=== PATIENT | female | born 1930 | race Caucasian/White ===

== ENCOUNTER → 2017-11-19 | Day surgery (SDC) | payer MEDICARE, BC ==
[~2017-11-19] MED LIST: Lactated Ringers 1,000 ML IV SCH; Propofol 200 MG/20 ML SDV IV ONE
[2017-11-19 10:25] VITALS: BP 183/63
--- NOTE | 2017-11-19 13:03 | OR ---
DATE OF OPERATION: 11/19/2017 PREOPERATIVE DIAGNOSIS: HEME-POSITIVE STOOL. POSTOPERATIVE DIAGNOSIS: HEME-POSITIVE STOOL. SURGEON: Walter Vincent MD PROCEDURE: FULL-LENGTH COLONOSCOPY. ANESTHESIA: RAISIN WASHER due to advanced age. COMPLICATIONS: None. SPECIMEN: None. FINDINGS: 1. Essentially normal full-length colonoscopy. 2. Extremely poor bowel prep. 3. Internal hemorrhoids. RECOMMENDATIONS: Medical followup with Sofi Shoemaker. INDICATIONS: The patient was in for a routine physical. She apparently had of a positive Hemoccult on her exam and was sent for colonoscopy as the patient has a history of polyps apparently in the past and it had been many years since her last colonoscopy. DESCRIPTION OF PROCEDURE: The patient was prepped and draped, placed in the left lateral decubitus position. A lubricated Olympus colonoscope was inserted and unfortunately, the patient had a very poor prep. She had a lot of liquid stool, unfortunately a lot of particulate matter throughout. We were able to usually maneuver around these areas and ultimately we advanced to the deep right colon. The patient had a significant amount of stool in the right colon and we could not definitely visualize the cecal pouch. Upon withdrawal, throughout the length of the colon, what I could see, she had a very healthy-appearing colon without any obvious polyps, masses, ulcerations, or bleeding sites. No obvious vascular abnormalities or signs of colitis. There may have been a few scattered diverticula in the sigmoid area, but very minimal. The rectal vault again had a significant amount of stool, but we were able to retroflex. She does have some perianal hemorrhoidal disease, but no other masses were seen. Air was suctioned as best as possible. Scope was removed without complication. The patient was stable in recovery room. ROGELIO/TAMARA /[id number]
--- NOTE | 2017-11-19 13:03 | LETTER ---
11/19/2017 Sofi Shoemaker, [place] [address] [address] RE: AARON MELGOZA : 1930 Dear Ms. Shoemaker: This letter is regarding Aaron Melgoza. As you know, she was sent for colonoscopy due to a hemoccult positive stool. Colonoscopy went fine. I could not find any obvious etiology of her hemoccult stool other than some internal hemorrhoids. Unfortunately, she had extremely poor prep with a lot of stool throughout most of the colon, what I could see of her colon did look fine and healthy and I suspect or assume that her blood is from the internal hemorrhoids. I see that she is not anemic or microcytic. If you feel she needs a more thorough exam, I would recommend a 2 day prep on her. Otherwise, she could just get hemoccults x3 at home and follow up with you in that regard. I appreciate the referral. Copy of the op note will be coming with this letter. Respectfully, ANGELIQUE /[id number]
== END ==
LOC: CC.SDS 08:10
PROVIDERS: ATTEND Family Medicine
DX: R19.5 Other fecal abnormalities (principal); K64.8 Other hemorrhoids; K57.30 Diverticulosis of large intestine without perforation or abscess without bleeding; Z88.5 Allergy status to narcotic agent; Z88.8 Allergy status to other drugs, medicaments and biological substances; Z86.010 Personal history of colon polyps
CPT/HCPCS: J2704; J7120